=== PATIENT | female | born 1950 | race Caucasian/White ===

== ENCOUNTER 2025-08-15 09:09 | Emergency (ER) | payer MEDICARE, BC ==
[~2025-08-15] VITALS: Ht 172.7 cm; Wt 59.9 kg
[2025-08-15] MEDS ORDERED: AMOX-430 PO (09:51)
[2025-08-15] MEDS ORDERED: IBUP-1490 PO (09:51)
[2025-08-15 09:58] VITALS: BP 157/82; TEMP 98; O2SAT 97
== END 2025-08-15 09:59 | disposition home or self-care (01) ==
LOC: ER 09:09
DX: L03.211 Cellulitis of face (principal); I10 Essential (primary) hypertension; H70.90 Unspecified mastoiditis, unspecified ear